=== PATIENT | male | born 1995 | race Caucasian/White ===

== ENCOUNTER 2018-10-22 06:38 | Emergency (ER) | payer OTHER ==
[~2018-10-22] VITALS: Ht 167.6 cm; Wt 63.1 kg
[~2018-10-22 06:38] MED LIST: CLIN300C85 PO; HYDR1TAB PO
[2018-10-22 06:55] VITALS: BP 117/68
[2018-10-22] MEDS ORDERED: DOXYCYCLINE 100MG CAPSULE PO STA (07:06)
[2018-10-22] MEDS ORDERED: CEPH-572 PO (07:08)
[2018-10-22] MEDS ORDERED: DOXY100C43 PO (07:08)
[2018-10-22] MEDS ORDERED: levetiracetam 250mg tablet PO ONE (07:10)
[2018-10-22] MEDS ORDERED: ondansetron 4mg rapidly disintigrating tab PO ONE (07:10)
[2018-10-22] MEDS ORDERED: cephalexin 250mg capsule PO ONE (07:20)
== END 2018-10-22 07:29 | disposition home or self-care (01) ==
LOC: ER 06:39
DX: L03.111 Cellulitis of right axilla (principal); Z79.2 Long term (current) use of antibiotics; Z79.899 Other long term (current) drug therapy
CPT/HCPCS: 99284

== ENCOUNTER 2022-01-21 02:26 | Inpatient (IN) | payer OTHER ==
[~2022-01-21] VITALS: Ht 167.6 cm; Wt 68.0 kg
[~2022-01-21 02:26] MED LIST changes: +CLIN-97 PO; -CLIN300C85 PO
[2022-01-21 03:28] LABS: ALANINE AMINOTRANSFERASE 83 U/L (12-78); ALBUMIN 3.7 G/DL (3.4-5.0); ALKALINE PHOSPHATASE 90 IU/L (46-116); ANION GAP 10 (8-16); ASPARTATE AMINO TRANSFERASE 39 U/L (10-37); BILIRUBIN,TOTAL 0.2 MG/DL (0.1-1.0); BLOOD UREA NITROGEN 16 MG/DL (7-18); BUN/CREATININE RATIO 17.6 (5.4-32.0); CALCIUM 8.7 MG/DL (8.5-10.1); CHLORIDE 105 MMOL/L (99-107); CREATININE 0.91 MG/DL (0.60-1.10); GLUCOSE 113 MG/DL (70-104); POTASSIUM 4.1 MMOL/L (3.5-5.1); SODIUM 145 MMOL/L (135-145); TOTAL CARBON DIOXIDE 30.4 MMOL/L (24-32); TOTAL PROTEIN 7.3 G/DL (6.4-8.2); eGFR > 90 ML/MIN
[2022-01-21 03:30] LABS: BASOPHILS # (AUTO) 0.1 X10'3 (0-0.2); BASOPHILS % (AUTO) 0.7 % (0-1); EOSINOPHILS # (AUTO) 0.2 X10'3 (0-0.9); EOSINOPHILS % (AUTO) 1.8 % (0-6); HEMATOCRIT 42.6 % (42.0-52.0); HEMOGLOBIN 14.4 g/dl (14.0-17.9); LYMPHOCYTES # (AUTO) 2.6 X10'3 (1.1-4.8); LYMPHOCYTES % (AUTO) 25.3 % (21-51); MEAN CORPUSCULAR HEMOGLOBIN 28.8 PG (27.0-31.0); MEAN CORPUSCULAR HGB CONC 33.7 g/dL (33.0-36.5); MEAN CORPUSCULAR VOLUME 85.5 FL (78-98); MEAN PLATELET VOLUME 7.8 FL (7.4-10.4); MONOCYTES # (AUTO) 0.9 X10'3 (0-0.9); MONOCYTES % (AUTO) 8.6 % (2-12); NEUTROPHILS # (AUTO) 6.7 X10'3 (1.8-7.7); NEUTROPHILS % (AUTO) 63.6 % (42-75); PLATELET COUNT 285 X10'3 (140-440); RED BLOOD COUNT 4.98 X10'6 (4.70-6.10); RED CELL DISTRIBUTION WIDTH 13.6 % (11.5-14.5); WHITE BLOOD COUNT 10.5 X10'3 (4.5-11.0)
[2022-01-21] MEDS ORDERED: morphine 2 MG/ML inj. syringe IV ONE ×3 (03:35→05:10)
[2022-01-21] MEDS ORDERED: MIDAZolam 5mg/ml 2ml vial IV ONE (03:35)
[2022-01-21] MEDS ORDERED: normal saline 1000ML IV soln IVB ONE (03:35)
[2022-01-21] MEDS ORDERED: LIDOCAINE 2% (20mg/ml) w/EPINEPHRINE 1:200,000-PF 10 ML inj. SQ ONE (03:45)
[2022-01-21] MEDS ORDERED: diphenhydrAMINE 50 mg/ml inj IV PRN (04:00)
[2022-01-21] MEDS ORDERED: diphenhydrAMINE 25mg capsule PO PRN (04:00)
[2022-01-21] MEDS ORDERED: morphine 2 MG/ML inj. syringe IV PRN ×3 (04:00→06:05)
[2022-01-21] MEDS ORDERED: ondansetron 4mg rapidly disintigrating tab PO PRN (04:00)
[2022-01-21] MEDS ORDERED: magnesium hydroxide 30ml (MOM) UD suspension PO PRN ×2 (04:00→06:05)
[2022-01-21] MEDS ORDERED: mag hydrox/Alum hydrox/simeth 30ml oral suspension PO PRN (04:00)
[2022-01-21] MEDS ORDERED: HYDROcodone/acetaminophen 5mg/325mg tablet PO PRN (04:00)
[2022-01-21] MEDS ORDERED: acetaminophen 650mg rectal suppository RC PRN (04:00)
[2022-01-21] MEDS ORDERED: ondansetron/PF 4mg/2ml inj IV PRN ×2 (04:00→06:05)
[2022-01-21] MEDS ORDERED: HYDROmorphone inj. 0.5 MG/0.5 ML DISP.SYRIN IV PRN (04:00)
[2022-01-21] MEDS ORDERED: bisacodyl 10mg suppository rectal RC PRN (04:00)
[2022-01-21] MEDS ORDERED: acetaminophen 325mg tablet PO PRN ×4 (04:00→06:05)
[2022-01-21 04:45] LABS: CREATINE KINASE 69 U/L (39-308); LIPASE 109 U/L (73-393)
[2022-01-21] MEDS ORDERED: ondansetron/PF 4mg/2ml inj IV ONE (05:10)
[2022-01-21] MEDS ORDERED: albuterol 2.5 MG/3 ML nebule NEB ONE (05:15)
--- NOTE | 2022-01-21 05:21 | NUR ---
PT COUGHING UP BILE POST THORAVENT INSERTION. O2 SAT DROPPING TO 81%. NONREBREATHER APPLIED, RT PAGED, X RAY TAKEN, MD AT BESIDE TO EVALUATE.
[2022-01-21 05:29] LABS: ETHANOL < 0.010 GM/DL (0.0-0.010)
[2022-01-21] MEDS ORDERED: furosemide 10 MG/1 ML 10ml inj IV ONE (05:30)
[2022-01-21] MEDS: dextrose 5%-1/2 normal saline 1,000 ML IV SCH ×2 (05:50→07:42)
[2022-01-21] MEDS ORDERED: potassium Cl 20 mEq SR tablet PO PRN ×2 (06:05)
[2022-01-21] MEDS ORDERED: morphine 4 MG/ML inj SYRINge IV PRN (06:05)
[2022-01-21 06:16] LABS: ABG BASE EXCESS -1.4 mmol/L (-2.0-2.0); ABG HCO3 25.5 mmol/L (22.0-26.0); ABG PCO2 (T) 48.9 mmHg (35.0-48.0); ABG PO2 (T) 96.6 mmHg (75.0-100.0); FCOHb 0.5 % (0.0-3.9); FLOW 15 L/min; FMetHb 0.3 % (0.0-1.5); FO2Hb 96.2 % (94-97); PATIENT TEMPERATURE 36.4; TOTAL HEMOGLOBIN 17.9 G/dl (14.0-18.0)
[2022-01-21 06:27] LABS: CLARITY,URINE SLIGHTLY CLOUDY (Clear); COLOR,URINE YELLOW (Yellow); GLUCOSE, URINE NEGATIVE (Neg); KETONES,URINE NEGATIVE (Neg); LEUKOCYTE ESTERASE ,URINE NEGATIVE (Neg); OCCULT BLOOD,URINE SMALL (Neg); PH,URINE 5.5 (4.8-8.0); PROTEIN,URINE NEGATIVE (Neg); UROBILINOGEN,URINE 0.2 E.U/dL (0.2-1.0)
[2022-01-21 06:28] LABS: NITRITES, URINE NEGATIVE (Neg); UA COLLECTION TYPE NON-SPECIFIED
[2022-01-21 06:33] LABS: MUCUS STRANDS FEW /LPF (Neg); SQUAMOUS EPITHELIAL CELL,UR NONE SEEN /LPF (FEW)
[2022-01-21 06:35] LABS: BACTERIA,URINE FEW /HPF (Neg)
[2022-01-21 06:41] VITALS: BP 114/87
[2022-01-21 06:43] LABS: URINE AMPHETAMINE SCREEN POSITIVE (Neg); URINE BARBITUATE SCREEN NEGATIVE (Neg); URINE BENZODIAZEPINES SCREEN POSITIVE (Neg); URINE CANNABINOID SCREEN POSITIVE (Neg); URINE COCAINE SCREEN NEGATIVE (Neg); URINE METHADONE SCREEN NEGATIVE (Neg); URINE OPIATE SCREEN POSITIVE (Neg); URINE PHENCYCLIDINE SCREEN NEGATIVE (Neg)
--- NOTE | 2022-01-21 06:45 | NUR ---
GIRLFRIEND AT BEDSIDE.
[2022-01-21 06:48] LABS: APTT 26 SECONDS (22-32); D-DIMER 20.22 MG/L FEU (0-0.50)
[2022-01-21] MEDS: docusate sod 100mg capsule PO SCH ×2 (06:49→20:00)
[2022-01-21] MEDS: pantoprazole 40mg Tablet.DR PO SCH (06:49)
[2022-01-21] MEDS: nicotine 21mg patch - 24 hr TD SCH (07:47)
[2022-01-21] MEDS: K and/or MAG REPLACEMENT MC SCH (08:00)
--- NOTE | 2022-01-21 08:05 | NUR ---
attempted to call report to [facility],Event Designer will come down to re corazon rawls/dr. Farrell.
--- NOTE | 2022-01-21 08:57 | NUR ---
Dr. reddy/food expeditor at bedside, downgraded pt to pcu, ordered to dc non rebreather and to start nc 6L,pt tolerated well, sating 96%, MD ordered saturation goal: 92% and above.Thoravent noted with bright pink blood, Md said it's normal.No IVF for now per MD and ok for patient to eat.Girlfriend at bedside.
--- NOTE | 2022-01-21 09:35 | NUR ---
attempted to call report to pcu,RN unavailable.
[2022-01-21] MEDS ORDERED: NO HOME MEDS (09:50)
[2022-01-21] MEDS: HYDROcodone/acetaminophen 10/325mg tab PO PRN ×2 (11:03→16:49)
--- NOTE | 2022-01-21 14:38 | NUR ---
Patient refused 12 hour troponin level. he verbalized that he does not want to be stuck with a needle again. patient has been educated about the importance of the repeat lab. he's also been educated to look troponin on the internet and the reason why it needs to be monitored. patient and significant other verbalized understanding.
[2022-01-21 15:00] VITALS: BP 108/67
[2022-01-21 18:00] VITALS: BP 106/72
--- NOTE | 2022-01-21 18:30 | NUR ---
Received pt in bed asleep, arousal to stimuli. Oxygen saturation 97% on 5 liters with humidifier. Thoravent to left chest attached to wall suction with serosanguineous fluid. Pt denied any discomfort at this time. Family member presents
[2022-01-21] MEDS: temazepam 15mg capsule PO PRN (20:21)
[2022-01-22 00:51] VITALS: BP 112/61
--- NOTE | 2022-01-22 02:00 | NUR ---
Frequent rounding on pt to monitor his oxygen saturation. No signs of respiratory discomfort noted. Pt is saturating well. Chest tube to wall suction functioning well
[2022-01-22 03:15] VITALS: BP 100/64
[2022-01-22] MEDS: HYDROcodone/acetaminophen 10/325mg tab PO PRN ×3 (03:31→18:51)
--- NOTE | 2022-01-22 05:29 | NUR ---
Incentive spirometer placed at bedside; will instruct pt how to use it when awaken.
[2022-01-22 06:00] VITALS: BP 124/85
--- NOTE | 2022-01-22 06:15 | NUR ---
received report from chito wayne
[2022-01-22] MEDS: pantoprazole 40mg Tablet.DR PO SCH (07:30)
[2022-01-22 07:40] LABS: BASOPHILS % (AUTO) 0.2 % (0-1); EOSINOPHILS # (AUTO) 0.1 X10'3 (0-0.9); EOSINOPHILS % (AUTO) 1.6 % (0-6); HEMATOCRIT 42.8 % (42.0-52.0); HEMOGLOBIN 14.5 g/dl (14.0-17.9); LYMPHOCYTES # (AUTO) 2.1 X10'3 (1.1-4.8); LYMPHOCYTES % (AUTO) 24.8 % (21-51); MEAN CORPUSCULAR HEMOGLOBIN 28.9 PG (27.0-31.0); MEAN CORPUSCULAR HGB CONC 33.8 g/dL (33.0-36.5); MEAN CORPUSCULAR VOLUME 85.6 FL (78-98); MEAN PLATELET VOLUME 7.6 FL (7.4-10.4); MONOCYTES # (AUTO) 0.5 X10'3 (0-0.9); MONOCYTES % (AUTO) 6.3 % (2-12); NEUTROPHILS # (AUTO) 5.7 X10'3 (1.8-7.7); NEUTROPHILS % (AUTO) 67.1 % (42-75); PLATELET COUNT 193 X10'3 (140-440); RED CELL DISTRIBUTION WIDTH 13.4 % (11.5-14.5); WHITE BLOOD COUNT 8.5 X10'3 (4.5-11.0)
[2022-01-22] MEDS: nicotine 21mg patch - 24 hr TD SCH (08:00)
[2022-01-22] MEDS: docusate sod 100mg capsule PO SCH ×2 (08:00→20:00)
[2022-01-22] MEDS ORDERED: LIDOcaine 5% patch TP SCH (08:00)
[2022-01-22] MEDS: K and/or MAG REPLACEMENT MC SCH (08:00)
[2022-01-22 08:13] LABS: ALANINE AMINOTRANSFERASE 48 U/L (12-78); ALBUMIN 2.7 G/DL (3.4-5.0); ALBUMIN/GLOBULIN RATIO 0.9 (1.1-1.5); ALKALINE PHOSPHATASE 74 IU/L (46-116); ANION GAP 8 (8-16); ASPARTATE AMINO TRANSFERASE 25 U/L (10-37); BILIRUBIN,TOTAL 0.7 MG/DL (0.1-1.0); BLOOD UREA NITROGEN 11 MG/DL (7-18); BUN/CREATININE RATIO 12.8 (5.4-32.0); CALCIUM 8.1 MG/DL (8.5-10.1); CHLORIDE 105 MMOL/L (99-107); CHOL/HDL RATIO 3.2 (0.00-4.99); CHOLESTEROL 117 MG/DL (0-200); CREATININE 0.86 MG/DL (0.60-1.10); GLUCOSE 84 MG/DL (70-104); HDL CHOLESTEROL 37 MG/DL (35-60); LDL CHOLESTEROL 67 MG/DL (50-100); MAGNESIUM 1.8 MG/DL (1.5-2.4); POTASSIUM 3.7 MMOL/L (3.5-5.1); SODIUM 142 MMOL/L (135-145); TOTAL PROTEIN 5.8 G/DL (6.4-8.2); TRIGLYCERIDES 86 MG/DL (20-135); eGFR > 90 ML/MIN
[2022-01-22 11:00] VITALS: BP 110/62
[2022-01-22] MEDS: dextrose 5%-1/2 normal saline 1,000 ML IV SCH ×2 (12:36)
--- NOTE | 2022-01-22 17:22 | NUR ---
after changing chest tube to water seal earlier this morning, there is no additional output from the 50 ml that has been recorded by previous nurse, continue to monitor
--- NOTE | 2022-01-22 18:32 | NUR ---
gave report to chito wayne
--- NOTE | 2022-01-22 20:11 | NUR ---
Dr Salas notified that pt left AMA.
--- NOTE | 2022-01-22 20:14 | NUR ---
Dr Hernandez notified of pt leaving AMA with the chest tube in place.
[2022-01-22] MEDS: temazepam 15mg capsule PO PRN (20:19)
--- NOTE | 2022-01-22 20:19 | NUR ---
family member in bed with pt, informed that visiting hours is over. Family member requested to speak to the charge nurse. Charge nurse made aware and and security was paged.
--- NOTE | 2022-01-22 20:25 | NUR ---
Security in room conversing with patient, notified pt that the family member needs to leave due to hospital policy about visitation. Pt requested to leave after being instructed about the risk of leaving against medical advice. Charge nurse spoke and informed him about the policy and risk of leaving with chest tube. Dr Salas notified and suggested that pt stays until tomorrow for further evaluation and possible discharge if test result ok. Pt refused to listen and stated that he does not want to speak to me.
--- NOTE | 2022-01-22 20:35 | NUR ---
HL removed and dressing applied.
--- NOTE | 2022-01-22 20:45 | NUR ---
Pt left AMA with the chest tube.
== END 2022-01-22 21:07 | disposition left against medical advice (07) | DRG 199 ==
LOC: ER 02:27 → UNDOADMIN 04:03 → ED HOLD 04:03 → UNDOADMIN 06:04 → ED HOLD 06:04 → EDBEDREQ 07:46 → ED HOLD 10:30 → PCU 3S 10:30 → UNDODISIN 01-22 21:07
PROVIDERS: ADMIT Family Medicine; ATTEND Family Medicine
PROC: 0W9B30Z Drainage of Left Pleural Cavity with Drainage Device, Percutaneous Approach (ICD-10-PCS; principal; 2022-01-21)
DX: J93.0 Spontaneous tension pneumothorax (principal); J81.0 Acute pulmonary edema; J98.11 Atelectasis; Z20.822 Contact with and (suspected) exposure to COVID-19; F17.210 Nicotine dependence, cigarettes, uncomplicated; R09.02 Hypoxemia; Z53.29 Procedure and treatment not carried out because of patient's decision for other reasons; R06.03 Acute respiratory distress; Z79.899 Other long term (current) drug therapy; Z71.6 Tobacco abuse counseling
CPT/HCPCS: 36415; 36600; 71045; 71046; 80053; 80061; 80305; 80320; 81001; 82550; 82803; 83690; 83735; 83880; 84443; 84484; 85018; 85025; 85379; 85610; 85730; 87081; 87088; 87635; 93005; 96374; 96375; 96376; 99291; G0378; J1940; J2250; J2270; J2405; J3490; J7030; J7042

== ENCOUNTER 2025-08-13 01:05 | Emergency (ER) | payer MEDICAID, OTHER ==
[~2025-08-13] VITALS: Ht 170.2 cm; Wt 65.9 kg
[~2025-08-13 01:05] MED LIST changes: -CLIN-97 PO; -HYDR1TAB PO; +NO HOME MEDS
--- NOTE | 2025-08-13 03:49 | Physician Documentation ---
History of Present Illness ~ Chief Complaint: Abscess Stated Complaint: WRIST ABCESS Time Seen by MD: 03:41 Primary Medical Doctor: NONE HPI Patient presents to the emergency room for evaluation of abscess to his left forearm. He states it has been going on for the past two days. No fevers. Tetanus reported to be up-to-date Tetanus Within 5 Years: Yes Medication Reconciliation Allergies: Coded Allergies: No Known Allergies (Unverified , 08/13/25) Miscellaneous Medications Home Med List (No Home Medications), (Reported) Past Medical History Past Medical History: No Pertinent History Past Surgical History: no surgical history Patient History: Patient reports no known family medical history. Alcohol Use: None Drug Use: none Lives with: Mother Lives In: Home Occupation: student Review of Systems ROS All review of systems negative except as per HPI Physical Exam Vital Signs: Temperature: 98.2, Source: Oral, Heart Rate: 91, Respiratory Rate: 18, BP: 128/73, Pulse Oximetry: 100, Weight: 65.910 Physical Exam General: Patient is awake, alert, oriented x4 in no acute distress Head: Normocephalic and atraumatic. Eyes: Conjunctival normal. EOMI. PERRL. ENT: Mucous membranes moist. Neck: Supple, trachea is midline. Chest: Clear to auscultation bilaterally without rales, rhonchi, or wheezes. There is no accessory muscle use or retractions. Cardiac: RRR without murmurs, gallops, or rubs. Abd: Soft, nondistended, nontender, with normoactive bowel sounds. No guarding, rebound, or rigidity. Extremities: 4 x 4 abscess to patient's left dorsal forearm with mild associated cellulitis Procedures Procedures Incision and drainage: Status post informed verbal consent patient was sterilely cleaned and draped. 1% lidocaine with epinephrine was utilized to a total of 3 cc to anesthetize patient's abscess. 11. Blade utilized to perform incision and drainage. Abscess was de loculated. A proximally 2-3 cc of purulent discharge along with blood was expressed. Patient tolerated procedure well without complication. Antibiotic ointment and bandage placed. Total time of procedure 10 minutes. Progress Results/Orders Results/Orders Completed Orders - BRYCE KIMBLE MD Ondansetron Disint. Tablet (Zofran Odt T (08/13/25 04:25) Sulfamethox/Trimetho. Ds Tab (Septra Ds (08/13/25 04:25) Medications Received in ER Medications (Trade) Dose Ordered Sig/Torin Route PRN Reason Start Time Stop Time Status Last Admin Dose Admin (Zofran ODT tablet) 4 mg ONCE ONCE PO 08/13/25 04:25 08/13/25 04:26 DC 08/13/25 04:31 4 MG (Septra DS tab) 1 tab ONCE ONCE PO 08/13/25 04:25 08/13/25 04:26 DC 08/13/25 04:31 1 TAB Vital Signs 08/13/25 01:09 Temp 98.2 Pulse 91 Resp 18 B/P (MAP) 128/73 Pulse Ox 100 Medical Decision Making Findings Patient presents to the emergency room for evaluation of abscess to his left upper extremity. Differentials include but are not limited to abscess, cellulitis, necrotizing fasciitis, osteomyelitis. Physical exam is consistent with abscess with surrounding cellulitis. I do not suspect necrotizing fasciitis and he had not feel patient requires imaging. Departure Disposition: HOME / SELF CARE / HOMELESS Impression: Primary Impression: Abscess Condition: Stable Discharge Instructions: Abscess, Care After Referrals: NO PRIMARY CARE PROVIDER (PCP) Prescriptions Sulfamethoxazole/Trimethoprim (Bactrim Ds Tablet) 800 Mg-160 Mg Tablet 1 TAB PO Q12H for 10 Days, #20 TAB Prov: BRYCE KIMBLE MD 08/13/25 Signature Scribe Signature: No scribe Attestation: The note accurately reflects work and decisions made by me.Bryce Kimble MD 08/13/25 04:46 BRYCE KIMBLE MD Aug 13, 2025 03:49
[2025-08-13] MEDS: ondansetron 4mg rapidly disintigrating tab PO ONE (04:31)
[2025-08-13] MEDS: sulfamethoxazole/trimethoprim DS (800/160mg) tablet PO ONE (04:31)
[2025-08-13] MEDS ORDERED: SULF1TAB49 PO (04:46)
[2025-08-13 04:52] VITALS: BP 133/88; PULSE 66; RESP 15; TEMP 98.1; O2SAT 100
[2025-08-13] MEDS: bacitracin 15gm ointment TP ONE (05:08)
== END 2025-08-13 05:09 | disposition home or self-care (01) ==
LOC: ER 01:06
DX: L02.414 Cutaneous abscess of left upper limb (principal)
CPT/HCPCS: 10060; 99283; A6258; A6449